=== PATIENT | male | born 1945 | race Caucasian/White ===

== ENCOUNTER 2021-03-06 10:57 | Day surgery (SDC) | payer OTHER ==
[2021-03-06 13:29] VITALS: BMI 24.4
[2021-03-06 13:32] LABS: BASO % 0.6 % (0-2.0); EOS % 0.8 % (0-4.5); HEMOGLOBIN 11.8 GM/dL (11.7-16.9); LYMPH % 8.2 % (8-40); MCH 28.4 pg (25.7-33.7); MCHC 33.7 g/dl (32.0-35.9); MEAN CELL VOLUME 84.2 fl (80-96); MEAN PLT VOLUME 7.3 fl (7.5-11.1); MONO % 9.6 % (3.8-10.2); NEUT % 80.8 % (42.8-82.8); PLATELET COUNT 342 10^3/uL (134-434); RBC 4.15 M/mm3 (4.00-5.60); RDW 13.7 % (11.9-15.9); WHITE BLOOD COUNT 7.6 K/mm3 (4.0-10.0)
[2021-03-06 13:49] LABS: INR 1.24 (0.83-1.09); PROTHROMBIN TIME (PATIENT) 15.1 SEC (9.7-13.0)
[2021-03-06 17:10] VITALS: BP 128/70; PULSE 63
[2021-03-06 17:11] VITALS: TEMP 97.2
== END 2021-03-06 17:00 | disposition home or self-care (01) ==
LOC: JRADIR 10:57
PROVIDERS: ATTEND Urology
PROC: 0T9B30Z Drainage of Bladder with Drainage Device, Percutaneous Approach (ICD-10-PCS; principal; 2021-03-06)
DX: N35.919 Unspecified urethral stricture, male, unspecified site (principal)
CPT/HCPCS: 36415; 51102; 85025; 85610

== ENCOUNTER 2022-05-03 18:34 | Emergency (ER) | payer OTHER ==
[2022-05-03 18:38] VITALS: RESP 18; TEMP 98.1; BMI 24.6
[2022-05-03] MEDS ORDERED: LIDOCAINE VISCOUS 2% ORAL/TOP 100 ML BOTTLE MM ONE (19:02)
[2022-05-03] MEDS ORDERED: LIDOCAINE VISCOUS 2% ORAL/TOP 15 ML UNIT-DOSE CUP ONE (19:05)
[2022-05-03] MEDS ORDERED: LIDOCAINE HCL 2% JELLY 10 ML CARTRIDGE ONE (19:54)
[2022-05-03 21:09] VITALS: BP 158/92; PULSE 83
== END 2022-05-03 21:24 | disposition home or self-care (01) ==
LOC: JER 18:34
DX: T83.091A Other mechanical complication of indwelling urethral catheter, initial encounter (principal)
CPT/HCPCS: 99283-25